=== PATIENT | male | born 1970 | race Caucasian/White ===

== ENCOUNTER 2017-07-18 18:36 | Inpatient (IN) | payer BC ==
[~2017-07-18] VITALS: Ht 177.8 cm; Wt 114.9 kg
[2017-07-18 18:37] VITALS: BP 177/67
[2017-07-18 18:58] LABS: BASO % 0.5 % (0.0-1.0); EOS # 0.5 10*3/uL (0.0-0.4); EOS % 5.4 % (1.0-4.0); HEMATOCRIT 41.1 % (42.0-52.0); HEMOGLOBIN 13.2 g/dl (14.0-18.0); LYMPH % 11.7 % (27.0-41.0); MEAN CELL VOLUME 89.2 fl (80.0-94.0); MEAN CORPUSCULAR HGB 28.6 pg (27.0-31.0); MEAN CORPUSCULAR HGB CONC 32.1 g/dl (33.0-37.0); MEAN PLATELET VOLUME 10.6 fl (9.6-12.3); MONO # 0.6 10*3/uL (0.1-1.0); MONO % 6.6 % (3.0-9.0); NEUT # 6.4 10*3/uL (2.3-7.9); NEUT % 75.6 % (47.0-73.0); PLATELET COUNT AUTOMATED 192 10*3/uL (130-400); RED BLOOD COUNT 4.61 10*6/uL (4.50-5.90); RED CELL DISTRI WIDTH 14.4 % (0-14.5); WHITE BLOOD COUNT 8.5 10*3/uL (4.8-10.8)
[2017-07-18 19:13] LABS: ACT PARTIAL THROMBO TIME 23.1 SECONDS (20.8-31.5)
[2017-07-18 19:19] LABS: ALBUMIN 3.5 gm/dl (3.1-4.5); ALKALINE PHOSPHATASE 105 U/L (45-117); BUN 15 mg/dl (7-24); CHLORIDE 102 mmol/L (98-107); CREATININE 0.69 mg/dL (0.70-1.30); POTASSIUM 4.3 mmol/L (3.5-5.1); SGOT/AST 29 IU/L (3-35); SGPT/ALT 44 U/L (12-78); SODIUM 138 mmol/L (136-145); TOTAL PROTEIN 6.8 gm/dL (6.4-8.2)
[2017-07-18 19:21] LABS: TROPONIN I < 0.015 ng/ml (<0.045)
[2017-07-18 19:30] VITALS: BP 124/77
[2017-07-18] MEDS ORDERED: HYDROCHLOROTH12.5 M3 PO (19:45)
[2017-07-18] MEDS ORDERED: VITAMIN D22000 UNIT PO (19:45)
[2017-07-18] MEDS ORDERED: PRINIVIL20 M1 PO (19:46)
[2017-07-18] MEDS ORDERED: GLUCOPHAGE1000 MG PO (19:47)
[2017-07-18] MEDS ORDERED: BENADRYL ALLERG25 M5 PO (19:48)
[2017-07-18] MEDS ORDERED: CLARITIN10 MG PO (19:49)
[2017-07-18] MEDS ORDERED: PLAVIX75 M1 PO (19:49)
[2017-07-18] MEDS ORDERED: LIPITOR80 MG PO ×2 (19:50→19:51)
[2017-07-18] MEDS ORDERED: ASPIRIN CHEWABL81 MG PO (19:51)
[2017-07-18] MEDS ORDERED: NOVOLOG FL100 UNIT/1 SQ (19:53)
[2017-07-18] MEDS ORDERED: AMARYL2 MG PO (19:54)
[2017-07-18] MEDS ORDERED: LEVEMIR FL100 UNIT/1 SQ (19:55)
[2017-07-18 20:00] VITALS: BP 139/73
[2017-07-18 20:20] VITALS: BP 157/71
[2017-07-18 20:30] VITALS: BP 157/71
[2017-07-19] VITALS: BP 108/58
[2017-07-19 04:00] VITALS: BP 136/68
[2017-07-19 06:23] LABS: BASO # 0.1 10*3/uL (0.0-0.1); BASO % 0.7 % (0.0-1.0); EOS # 0.5 10*3/uL (0.0-0.4); EOS % 7.9 % (1.0-4.0); HEMOGLOBIN 12.6 g/dl (14.0-18.0); MEAN CELL VOLUME 88.8 fl (80.0-94.0); MEAN CORPUSCULAR HGB 29.4 pg (27.0-31.0); MEAN CORPUSCULAR HGB CONC 33.2 g/dl (33.0-37.0); MONO # 0.6 10*3/uL (0.1-1.0); MONO % 8.8 % (3.0-9.0); NEUT # 4.6 10*3/uL (2.3-7.9); NEUT % 67.5 % (47.0-73.0); PLATELET COUNT AUTOMATED 170 10*3/uL (130-400); RED BLOOD COUNT 4.28 10*6/uL (4.50-5.90); RED CELL DISTRI WIDTH 14.5 % (0-14.5); WHITE BLOOD COUNT 6.7 10*3/uL (4.8-10.8)
[2017-07-19 06:51] LABS: BUN 12 mg/dl (7-24); CHLORIDE 102 mmol/L (98-107); SODIUM 140 mmol/L (136-145)
[2017-07-19 07:03] LABS: CHOLESTEROL 123 mg/dL (<200); CREATININE 0.55 mg/dL (0.70-1.30); HDL CHOLESTEROL 27 mg/dl (40-60); LDL CHOLESTEROL 80 mg/dL (9-159); PHOSPHOROUS 3.9 mg/dL (2.5-4.9); TRIGLYCERIDES 80 mg/dl (<150); VLDL CHOLESTEROL 16 mg/dL (6-40)
[2017-07-19 07:08] LABS: VITAMIN D, 25-HYDROXY 36.6 ng/mL (30-100)
[2017-07-19 08:00] VITALS: BP 138/64
[2017-07-19 12:00] VITALS: BP 136/66
[2017-07-19] MEDS ORDERED: LEXAPRO10 MG PO (16:47)
[2017-07-19] MEDS ORDERED: B12,B-12,B 12500 MC1 PO (16:47)
[2017-07-19] MEDS ORDERED: LEVEMIR FL100 UNIT/1 SQ (16:47)
== END 2017-07-19 17:28 | disposition home or self-care (01) | DRG 313 ==
LOC: ED 18:36 → EDHOLD 19:33 → 4E 19:33
PROVIDERS: Emergency Medicine; Internal Medicine
PROC: 3E073KZ Introduction of Other Diagnostic Substance into Coronary Artery, Percutaneous Approach (ICD-10-PCS; principal; 2017-07-19)
PROC: 4A02XM4 Measurement of Cardiac Total Activity, External Approach (ICD-10-PCS; principal; 2017-07-19)
DX: R07.89 Other chest pain (principal); E11.65 Type 2 diabetes mellitus with hyperglycemia; I10 Essential (primary) hypertension; E66.01 Morbid (severe) obesity due to excess calories; D64.9 Anemia, unspecified; E78.5 Hyperlipidemia, unspecified; F41.9 Anxiety disorder, unspecified; Z88.0 Allergy status to penicillin; Z82.49 Family history of ischemic heart disease and other diseases of the circulatory system; Z80.8 Family history of malignant neoplasm of other organs or systems; Z82.3 Family history of stroke; Z86.73 Personal history of transient ischemic attack (TIA), and cerebral infarction without residual deficits; Z90.89 Acquired absence of other organs; Z79.899 Other long term (current) drug therapy; Z79.82 Long term (current) use of aspirin; Z84.89 Family history of other specified conditions; Z79.4 Long term (current) use of insulin; Z87.891 Personal history of nicotine dependence; Z68.36 Body mass index [BMI] 36.0-36.9, adult

== ENCOUNTER → 2017-07-24 | Outpatient (CLI) | payer BC ==
[~2017-07-24] MED LIST: AMARYL2 MG PO; ASPIRIN CHEWABL81 MG PO; B12,B-12,B 12500 MC1 PO; BENADRYL ALLERG25 M5 PO; CLARITIN10 MG PO; GLUCOPHAGE1000 MG PO; HYDROCHLOROTH12.5 M3 PO; LEVEMIR FL100 UNIT/1 SQ; LEXAPRO10 MG PO; LIPITOR80 MG PO; NOVOLOG FL100 UNIT/1 SQ; PLAVIX75 M1 PO; PRINIVIL20 M1 PO; VITAMIN D22000 UNIT PO
[2017-07-24 16:31] LABS: BASO # 0.1 10*3/uL (0.0-0.1); BASO % 0.6 % (0.0-1.0); EOS # 0.4 10*3/uL (0.0-0.4); EOS % 4.6 % (1.0-4.0); HEMATOCRIT 45.1 % (42.0-52.0); HEMOGLOBIN 14.8 g/dl (14.0-18.0); LYMPH # 0.9 10*3/uL (1.3-4.4); LYMPH % 9.7 % (27.0-41.0); MEAN CELL VOLUME 87.4 fl (80.0-94.0); MEAN CORPUSCULAR HGB 28.7 pg (27.0-31.0); MEAN CORPUSCULAR HGB CONC 32.8 g/dl (33.0-37.0); MEAN PLATELET VOLUME 9.9 fl (9.6-12.3); MONO # 0.7 10*3/uL (0.1-1.0); MONO % 7.6 % (3.0-9.0); NEUT # 7.2 10*3/uL (2.3-7.9); NEUT % 77.1 % (47.0-73.0); PLATELET COUNT AUTOMATED 210 10*3/uL (130-400); RED BLOOD COUNT 5.16 10*6/uL (4.50-5.90); RED CELL DISTRI WIDTH 14.3 % (0-14.5); WHITE BLOOD COUNT 9.3 10*3/uL (4.8-10.8)
[2017-07-24 16:45] LABS: ALBUMIN 3.7 gm/dl (3.1-4.5); ALKALINE PHOSPHATASE 94 U/L (45-117); BUN 24 mg/dl (7-24); CHLORIDE 101 mmol/L (98-107); CREATININE 0.87 mg/dL (0.70-1.30); SGOT/AST 13 IU/L (3-35); SGPT/ALT 27 U/L (12-78); SODIUM 138 mmol/L (136-145)
== END | disposition home or self-care (01) ==
LOC: RESCLI 00:34
PROVIDERS: Family Medicine
DX: I10 Essential (primary) hypertension (principal); I63.9 Cerebral infarction, unspecified; E11.9 Type 2 diabetes mellitus without complications; E55.9 Vitamin D deficiency, unspecified; J30.2 Other seasonal allergic rhinitis; E78.5 Hyperlipidemia, unspecified; F33.9 Major depressive disorder, recurrent, unspecified; Z79.4 Long term (current) use of insulin; Z88.0 Allergy status to penicillin

== ENCOUNTER → 2017-08-09 | Outpatient (CLI) | payer BC | END | disposition home or self-care (01) | LOC: US 01:19 | DX: I65.23 Occlusion and stenosis of bilateral carotid arteries (principal); E11.9 Type 2 diabetes mellitus without complications; I10 Essential (primary) hypertension ==

== ENCOUNTER → 2020-06-22 | Outpatient (CLI) | payer BC ==
[2020-06-22 11:54] LABS: BILIRUBIN Negative (Negative); BLOOD Negative (Negative); CLARITY Clear (Clear); COLOR Yellow (Yellow); GLUCOSE Negative (Negative); KETONE Negative (Negative); LEUKO ESTERASE Negative (Negative); NITRITE Negative (Negative)
[2020-06-22 12:08] LABS: WBC 0-2 wbc/hpf (0-5)
[2020-06-22 12:23] LABS: ALBUMIN 3.5 gm/dl (3.1-4.5); BILIRUBIN, DIRECT 0.1 mg/dL (0.0-0.2); BUN 21 mg/dl (7-24); CHLORIDE 105 mmol/L (98-107); HDL CHOLESTEROL 39 mg/dl (40-60); SGOT/AST 18 IU/L (3-35); SGPT/ALT 23 U/L (12-78); SODIUM 138 mmol/L (136-145)
[2020-06-22 12:26] LABS: ALKALINE PHOSPHATASE 71 U/L (45-117); CHOLESTEROL 104 mg/dL (<200); CREATININE 0.83 mg/dL (0.70-1.30); LDL CHOLESTEROL 52 mg/dL (9-159); TRIGLYCERIDES 66 mg/dl (<150); VLDL CHOLESTEROL 13 mg/dL (6-40)
[2020-06-22 12:35] LABS: VITAMIN D, 25-HYDROXY 55.3 ng/mL (30-100)
== END | disposition home or self-care (01) ==
LOC: LAB 11:02
PROVIDERS: ATTEND Internal Medicine
DX: E11.65 Type 2 diabetes mellitus with hyperglycemia (principal); E11.40 Type 2 diabetes mellitus with diabetic neuropathy, unspecified; E78.5 Hyperlipidemia, unspecified; E55.9 Vitamin D deficiency, unspecified

== ENCOUNTER → 2022-10-27 | Outpatient (CLI) | payer BC ==
[2022-10-27 11:57] LABS: BILIRUBIN Negative (Negative); BLOOD Negative (Negative); CLARITY Clear (Clear); COLOR Yellow (Yellow); GLUCOSE Negative (Negative); KETONE Trace (Negative); LEUKO ESTERASE Negative (Negative); NITRITE Negative (Negative)
[2022-10-27 12:24] LABS: ALKALINE PHOSPHATASE 68 U/L (46-116); BUN 16 mg/dl (9-23); CHLORIDE 102 mmol/L (98-107); CHOLESTEROL 122 mg/dL (<200); LDL CHOLESTEROL 69 mg/dL (9-159); POTASSIUM 4.5 mmol/L (3.4-5.1); SGPT/ALT 18 U/L (10-49); TOTAL PROTEIN 6.5 gm/dL (6.0-8.0); TRIGLYCERIDES 96 mg/dl (<150)
[2022-10-27 12:29] LABS: VITAMIN D, 25-HYDROXY 53.2 ng/mL (30-100)
== END | disposition home or self-care (01) ==
LOC: LAB 10:47
PROVIDERS: ATTEND Internal Medicine
DX: E11.65 Type 2 diabetes mellitus with hyperglycemia (principal); E11.40 Type 2 diabetes mellitus with diabetic neuropathy, unspecified; E55.9 Vitamin D deficiency, unspecified; E78.5 Hyperlipidemia, unspecified; N40.0 Benign prostatic hyperplasia without lower urinary tract symptoms; D50.0 Iron deficiency anemia secondary to blood loss (chronic)

== ENCOUNTER → 2022-12-22 | Outpatient (CLI) | payer BC | END | disposition home or self-care (01) | LOC: LAB 15:04 | PROVIDERS: ATTEND Surgery | DX: R10.9 Unspecified abdominal pain (principal) ==

== ENCOUNTER → 2022-12-23 | Outpatient (CLI) | payer BC | END | disposition home or self-care (01) | LOC: CT 01:21 | PROVIDERS: ATTEND Surgery | DX: K80.20 Calculus of gallbladder without cholecystitis without obstruction (principal); I70.0 Atherosclerosis of aorta; K42.9 Umbilical hernia without obstruction or gangrene ==

== ENCOUNTER → 2023-03-02 | Outpatient (CLI) | payer BC | END | disposition home or self-care (01) | LOC: US 01:19 | PROVIDERS: ATTEND Surgery | DX: K80.20 Calculus of gallbladder without cholecystitis without obstruction (principal) ==

== ENCOUNTER → 2023-03-18 | Outpatient (CLI) | payer BC ==
[~2023-03-18] MED LIST changes: +HUMALOG 751 UNIT/0.0 SC; +TRULICITY4.5 MG/0.5 SQ
[2023-03-18 09:36] LABS: BILIRUBIN Negative (Negative); BLOOD Negative (Negative); CLARITY Clear (Clear); COLOR Yellow (Yellow); GLUCOSE Negative (Negative); KETONE Trace (Negative); LEUKO ESTERASE Negative (Negative); NITRITE Negative (Negative); SPECIFIC GRAVITY 1.025 (1.001-1.030)
[2023-03-18 11:18] LABS: BACTERIA 3+
== END | disposition home or self-care (01) ==
LOC: LAB 09:08
PROVIDERS: ATTEND Internal Medicine
DX: I44.4 Left anterior fascicular block (principal); D50.0 Iron deficiency anemia secondary to blood loss (chronic); E11.9 Type 2 diabetes mellitus without complications; E78.5 Hyperlipidemia, unspecified; E11.40 Type 2 diabetes mellitus with diabetic neuropathy, unspecified

== ENCOUNTER → 2023-03-20 | Day surgery (SDC) | payer BC ==
[2023-03-17 13:06] VITALS: BP 166/91
[2023-03-18 09:35] LABS: BASO % 0.7 % (0.0-1.0); EOS # 0.2 10*3/uL (0.0-0.4); EOS % 2.6 % (1.0-4.0); HEMATOCRIT 42.7 % (42.0-52.0); LYMPH # 0.9 10*3/uL (1.3-4.4); LYMPH % 14.7 % (27.0-41.0); MEAN CELL VOLUME 87.5 fl (80.0-94.0); MEAN CORPUSCULAR HGB 28.7 pg (27.0-31.0); MEAN CORPUSCULAR HGB CONC 32.8 g/dl (33.0-37.0); MEAN PLATELET VOLUME 10.2 fl (9.6-12.3); MONO # 0.4 10*3/uL (0.1-1.0); MONO % 7.2 % (3.0-9.0); NEUT # 4.6 10*3/uL (2.3-7.9); NEUT % 74.6 % (47.0-73.0); PLATELET COUNT AUTOMATED 184 10*3/uL (130-400); RED BLOOD COUNT 4.88 10*6/uL (4.50-5.90); RED CELL DISTRI WIDTH 13.8 % (0-14.5); WHITE BLOOD COUNT 6.1 10*3/uL (4.8-10.8)
[2023-03-18 09:45] LABS: ACT PARTIAL THROMBO TIME 30.2 SECONDS (20.0-32.1)
[2023-03-18 10:02] LABS: ALKALINE PHOSPHATASE 70 U/L (46-116); BUN 30 mg/dl (9-23); CHLORIDE 103 mmol/L (98-107); POTASSIUM 4.3 mmol/L (3.4-5.1); SGPT/ALT 19 U/L (5-49); TOTAL PROTEIN 6.9 gm/dL (6.0-8.0)
[2023-03-20] VITALS (7 sets, daily range): BP systolic 101–125; BP diastolic 50–79
[~2023-03-20] VITALS: Ht 175.2 cm; Wt 104.3 kg
[~2023-03-20] MED LIST changes: +HYDROCODONE-AC1 EAC1 PO
== END | disposition home or self-care (01) ==
LOC: SDC 03-17 13:15
PROVIDERS: ATTEND Surgery
DX: K43.6 Other and unspecified ventral hernia with obstruction, without gangrene (principal); K80.20 Calculus of gallbladder without cholecystitis without obstruction; I10 Essential (primary) hypertension; E11.9 Type 2 diabetes mellitus without complications; E66.9 Obesity, unspecified; E78.5 Hyperlipidemia, unspecified; Z87.891 Personal history of nicotine dependence; Z79.899 Other long term (current) drug therapy; Z90.49 Acquired absence of other specified parts of digestive tract; Z90.89 Acquired absence of other organs; Z98.890 Other specified postprocedural states; Z88.0 Allergy status to penicillin; Z91.040 Latex allergy status; Z91.09 Other allergy status, other than to drugs and biological substances; Z68.33 Body mass index [BMI] 33.0-33.9, adult

== ENCOUNTER 2023-04-28 20:29 | Emergency (ER) | payer BC ==
[~2023-04-28] VITALS: Ht 172.7 cm; Wt 97.5 kg
[2023-04-28 20:47] VITALS: BP 132/76
[2023-04-28] MEDS ORDERED: CYMBALTA20 M1 PO (20:53)
[2023-04-28] MEDS ORDERED: BUSPAR5 MG PO (20:53)
[2023-04-28 21:04] LABS: BASO % 0.6 % (0.0-1.0); EOS # 0.2 10*3/uL (0.0-0.4); EOS % 2.9 % (1.0-4.0); HEMATOCRIT 39.4 % (42.0-52.0); LYMPH # 0.9 10*3/uL (1.3-4.4); LYMPH % 14.6 % (27.0-41.0); MEAN CELL VOLUME 88.1 fl (80.0-94.0); MEAN CORPUSCULAR HGB 28.4 pg (27.0-31.0); MEAN CORPUSCULAR HGB CONC 32.2 g/dl (33.0-37.0); MEAN PLATELET VOLUME 10.2 fl (9.6-12.3); MONO # 0.6 10*3/uL (0.1-1.0); MONO % 8.7 % (3.0-9.0); NEUT # 4.6 10*3/uL (2.3-7.9); NEUT % 73.2 % (47.0-73.0); PLATELET COUNT AUTOMATED 200 10*3/uL (130-400); RED BLOOD COUNT 4.47 10*6/uL (4.50-5.90); RED CELL DISTRI WIDTH 14.1 % (0-14.5); WHITE BLOOD COUNT 6.3 10*3/uL (4.8-10.8)
[2023-04-28 21:23] LABS: ACT PARTIAL THROMBO TIME 27.4 SECONDS (20.0-32.1)
[2023-04-28 21:32] LABS: BILIRUBIN Negative (Negative); BLOOD Negative (Negative); CLARITY Cloudy (Clear); COLOR Yellow (Yellow); GLUCOSE Negative (Negative); KETONE Trace (Negative); LEUKO ESTERASE Negative (Negative); NITRITE Negative (Negative); SPECIFIC GRAVITY 1.025 (1.001-1.030)
[2023-04-28 21:32] LABS: ALKALINE PHOSPHATASE 86 U/L (46-116); BUN 22 mg/dl (9-23); CHLORIDE 104 mmol/L (98-107); LIPASE 61 U/L (12-53); POTASSIUM 4.1 mmol/L (3.4-5.1); SGPT/ALT 19 U/L (5-49); TOTAL PROTEIN 6.6 gm/dL (6.0-8.0)
[2023-04-28 21:47] LABS: BACTERIA 1+; MUCOUS 2+
[2023-04-28] MEDS ORDERED: ACID REDUCER10 MG PO (23:32)
== END 2023-04-28 23:36 | disposition home or self-care (01) ==
LOC: ED 20:29
PROVIDERS: Internal Medicine
DX: K21.9 Gastro-esophageal reflux disease without esophagitis (principal); R11.2 Nausea with vomiting, unspecified; Z91.040 Latex allergy status; Z88.0 Allergy status to penicillin; Z79.899 Other long term (current) drug therapy; Z79.4 Long term (current) use of insulin; Z96.22 Myringotomy tube(s) status; Z90.89 Acquired absence of other organs; Z87.891 Personal history of nicotine dependence

== ENCOUNTER → 2023-08-01 | Outpatient (CLI) | payer BC ==
[~2023-08-01] MED LIST changes: +ACID REDUCER10 MG PO; +BUSPAR5 MG PO; +CYMBALTA20 M1 PO
[2023-08-01 09:19] LABS: BILIRUBIN Negative (Negative); BLOOD Negative (Negative); CLARITY Clear (Clear); COLOR Yellow (Yellow); GLUCOSE Negative (Negative); KETONE Negative (Negative); LEUKO ESTERASE Negative (Negative); NITRITE Negative (Negative)
[2023-08-01 09:44] LABS: ALKALINE PHOSPHATASE 76 U/L (46-116); BUN 21 mg/dl (9-23); CHLORIDE 102 mmol/L (98-107); CHOLESTEROL 135 mg/dL (<200); LDL CHOLESTEROL 86 mg/dL (9-159); POTASSIUM 4.4 mmol/L (3.4-5.1); SGPT/ALT 12 U/L (5-49); TOTAL PROTEIN 6.6 gm/dL (6.0-8.0); TRIGLYCERIDES 65 mg/dl (<150)
[2023-08-01 09:47] LABS: VITAMIN D, 25-HYDROXY 62.2 ng/mL (30-100)
[2023-08-01 10:01] LABS: WBC 0-2 wbc/hpf (0-5)
== END | disposition home or self-care (01) ==
LOC: LAB 08:29
PROVIDERS: ATTEND Internal Medicine
DX: E11.40 Type 2 diabetes mellitus with diabetic neuropathy, unspecified (principal); E34.9 Endocrine disorder, unspecified; E11.9 Type 2 diabetes mellitus without complications; E55.9 Vitamin D deficiency, unspecified; N40.0 Benign prostatic hyperplasia without lower urinary tract symptoms; E78.5 Hyperlipidemia, unspecified; D50.0 Iron deficiency anemia secondary to blood loss (chronic)

== ENCOUNTER → 2024-01-22 | Outpatient (CLI) | payer BC ==
[2024-01-22 08:44] LABS: BILIRUBIN Negative (Negative); BLOOD Negative (Negative); CLARITY Clear (Clear); COLOR Yellow (Yellow); GLUCOSE Negative (Negative); KETONE Trace (Negative); LEUKO ESTERASE Negative (Negative); NITRITE Negative (Negative); SPECIFIC GRAVITY 1.015 (1.001-1.030)
[2024-01-22 09:12] LABS: ALKALINE PHOSPHATASE 69 U/L (46-116); BUN 24 mg/dl (9-23); CHLORIDE 103 mmol/L (98-107); CHOLESTEROL 85 mg/dL (<200); LDL CHOLESTEROL 33 mg/dL (9-159); SGPT/ALT 22 U/L (5-49); TRIGLYCERIDES 73 mg/dl (<150)
[2024-01-22 09:56] LABS: VITAMIN D, 25-HYDROXY 60.9 ng/mL (30-100)
[2024-01-22 11:01] LABS: RBC 0-2 rbc/hpf (0-2)
== END | disposition home or self-care (01) ==
LOC: LAB 08:22
PROVIDERS: ATTEND Internal Medicine
DX: E11.9 Type 2 diabetes mellitus without complications (principal); E78.5 Hyperlipidemia, unspecified; E55.9 Vitamin D deficiency, unspecified; E34.9 Endocrine disorder, unspecified; D50.0 Iron deficiency anemia secondary to blood loss (chronic); N40.0 Benign prostatic hyperplasia without lower urinary tract symptoms

== ENCOUNTER 2024-08-13 16:29 | Emergency (ER) | payer BC ==
[~2024-08-13] VITALS: Ht 175.2 cm; Wt 99.8 kg
[2024-08-13 16:56] VITALS: BP 148/72
[2024-08-13] MEDS ORDERED: HYDROCHLOROTHIA25 M1 PO (16:57)
[2024-08-13] MEDS ORDERED: DULOXETINE HCL30 MG PO (16:57)
[2024-08-13] MEDS ORDERED: CLOPIDOGREL75 MG PO (16:57)
[2024-08-13] MEDS ORDERED: LISINOPRIL10 M1 PO (16:58)
[2024-08-13] MEDS ORDERED: METFORMIN HYDR500 MG PO (16:58)
[2024-08-13] MEDS ORDERED: ROSUVASTATIN CA40 MG PO (16:59)
[2024-08-13] MEDS ORDERED: OMEPRAZOLE40 MG PO (16:59)
[2024-08-13] MEDS ORDERED: PREDNISONE20 M1 PO (17:13)
[2024-08-13] MEDS ORDERED: methylPREDNISolone sod succ 125 MG VIAL IM ONE (17:15)
[2024-08-13] MEDS ORDERED: Acetaminophen/Oxycodone 5 MG/325 MG TABLET PO ONE (17:15)
[2024-08-13] MEDS ORDERED: Water, Sterile 10 ML VIAL ONE (17:41)
== END 2024-08-13 17:19 | disposition home or self-care (01) ==
LOC: ED 16:29
DX: S39.012A Strain of muscle, fascia and tendon of lower back, initial encounter (principal); E11.9 Type 2 diabetes mellitus without complications; K21.9 Gastro-esophageal reflux disease without esophagitis; F41.9 Anxiety disorder, unspecified; D64.9 Anemia, unspecified; E11.65 Type 2 diabetes mellitus with hyperglycemia; I10 Essential (primary) hypertension; Z91.040 Latex allergy status; Z88.0 Allergy status to penicillin; Z79.4 Long term (current) use of insulin; Z90.89 Acquired absence of other organs; Z98.890 Other specified postprocedural states; Z87.891 Personal history of nicotine dependence; X50.0XXA Overexertion from strenuous movement or load, initial encounter; Y93.89 Activity, other specified; Y92.89 Other specified places as the place of occurrence of the external cause; Y99.8 Other external cause status

== ENCOUNTER → 2024-08-17 | Outpatient (CLI) | payer BC ==
[~2024-08-17] MED LIST changes: +CLOPIDOGREL75 MG PO; +DULOXETINE HCL30 MG PO; +HYDROCHLOROTHIA25 M1 PO; +LISINOPRIL10 M1 PO; +METFORMIN HYDR500 MG PO; +OMEPRAZOLE40 MG PO; +PREDNISONE20 M1 PO; +ROSUVASTATIN CA40 MG PO
[2024-08-17 10:34] LABS: BILIRUBIN Negative (Negative); BLOOD Negative (Negative); CLARITY Clear (Clear); COLOR Yellow (Yellow); GLUCOSE 2+ (Negative); HEMATOCRIT 42.8 % (42.0-52.0); KETONE Negative (Negative); LEUKO ESTERASE Negative (Negative); MEAN CELL VOLUME 89.5 fl (80.0-94.0); MEAN CORPUSCULAR HGB 28.5 pg (27.0-31.0); MEAN CORPUSCULAR HGB CONC 31.8 g/dl (33.0-37.0); MEAN PLATELET VOLUME 9.7 fl (9.6-12.3); NITRITE Negative (Negative); RED BLOOD COUNT 4.78 10*6/uL (4.50-5.90); RED CELL DISTRI WIDTH 13.8 % (0-14.5); WHITE BLOOD COUNT 7.7 10*3/uL (4.8-10.8)
[2024-08-17 10:50] LABS: BACTERIA TRACE; MUCOUS TRACE; WBC 0-2 wbc/hpf (0-5)
[2024-08-17 11:00] LABS: ALKALINE PHOSPHATASE 69 U/L (46-116); BUN 24 mg/dl (9-23); CHLORIDE 100 mmol/L (98-107); CHOLESTEROL 93 mg/dL (<200); LDL CHOLESTEROL 44 mg/dL (9-159); POTASSIUM 4.6 mmol/L (3.4-5.1); SGPT/ALT 19 U/L (5-49); TOTAL PROTEIN 6.6 gm/dL (6.0-8.0); TRIGLYCERIDES 89 mg/dl (<150)
== END | disposition home or self-care (01) ==
LOC: LAB 10:14
PROVIDERS: ATTEND Internal Medicine
DX: E11.9 Type 2 diabetes mellitus without complications (principal); E78.5 Hyperlipidemia, unspecified; E11.40 Type 2 diabetes mellitus with diabetic neuropathy, unspecified; N40.0 Benign prostatic hyperplasia without lower urinary tract symptoms; E34.9 Endocrine disorder, unspecified; D50.0 Iron deficiency anemia secondary to blood loss (chronic)

== ENCOUNTER 2024-12-29 13:33 | Emergency (ER) | payer BC ==
[~2024-12-29] VITALS: Ht 177.8 cm; Wt 100.7 kg
[2024-12-29 14:00] VITALS: BP 123/62
[2024-12-29 14:13] LABS: BILIRUBIN 1+ (Negative); BLOOD 1+ (Negative); CLARITY Turbid (Clear); COLOR Red (Yellow); KETONE Negative (Negative); LEUKO ESTERASE 2+ (Negative); NITRITE Positive (Negative); PH 5.0 (4.5-8.0); SPECIFIC GRAVITY 1.025 (1.001-1.030); UROBILINOGEN 1.0 E.U./dl (0.0-1.0)
[2024-12-29 14:28] LABS: RBC TNTC rbc/hpf (0-2)
[2024-12-29] MEDS ORDERED: CIPRO500 MG PO (14:36)
[2024-12-29] MEDS ORDERED: Ciprofloxacin Hydrochloride 500 MG TAB PO ONE ×2 (14:40)
== END 2024-12-29 14:40 | disposition home or self-care (01) ==
LOC: ED 13:33
PROVIDERS: Nurse Practitioner Family
DX: N39.0 Urinary tract infection, site not specified (principal); Z91.040 Latex allergy status; Z88.0 Allergy status to penicillin; Z79.899 Other long term (current) drug therapy; Z79.84 Long term (current) use of oral hypoglycemic drugs; Z79.4 Long term (current) use of insulin; Z90.89 Acquired absence of other organs; Z96.22 Myringotomy tube(s) status; Z87.891 Personal history of nicotine dependence

== ENCOUNTER → 2024-12-31 | Outpatient (CLI) | payer BC ==
[~2024-12-31] MED LIST changes: +CIPRO500 MG PO
[2024-12-31 08:20] LABS: MEAN CELL VOLUME 91.6 fl (80.0-94.0); MEAN CORPUSCULAR HGB 28.7 pg (27.0-31.0); MEAN PLATELET VOLUME 9.8 fl (9.6-12.3); NUCLEATED RED BLOOD CELL 0.0 % (0.0-0.0); NUCLEATED RED BLOOD CELL 0.0 10*3/uL (0.0-0.0); PLATELET COUNT AUTOMATED 196.0 10*3/uL (130-400); RED CELL DISTRI WIDTH 14.0 % (0-14.5)
[2024-12-31 08:33] LABS: BILIRUBIN Negative (Negative); BLOOD Trace-Lysed (Negative); CLARITY Clear (Clear); COLOR Yellow (Yellow); KETONE Trace (Negative); LEUKO ESTERASE 1+ (Negative); NITRITE Negative (Negative); PH 5.0 (4.5-8.0); SPECIFIC GRAVITY 1.020 (1.001-1.030); UROBILINOGEN 1.0 E.U./dl (0.0-1.0)
[2024-12-31 08:45] LABS: BACTERIA 2+
[2024-12-31 09:30] LABS: BUN 35 mg/dl (9-23); LDL CHOLESTEROL 46 mg/dL (9-159); SGPT/ALT 13 U/L (5-49)
[2024-12-31 09:48] LABS: VITAMIN D, 25-HYDROXY 70.3 ng/mL (30-100)
== END | disposition home or self-care (01) ==
LOC: LAB 07:53
PROVIDERS: ATTEND Internal Medicine
DX: E11.40 Type 2 diabetes mellitus with diabetic neuropathy, unspecified (principal); E78.5 Hyperlipidemia, unspecified; E55.9 Vitamin D deficiency, unspecified; N40.0 Benign prostatic hyperplasia without lower urinary tract symptoms; E34.9 Endocrine disorder, unspecified

== ENCOUNTER → 2025-04-23 | Outpatient (CLI) | payer BC ==
[2025-04-23 09:57] LABS: MEAN CELL VOLUME 88.0 fl (80.0-94.0); MEAN CORPUSCULAR HGB 27.9 pg (27.0-31.0); MEAN PLATELET VOLUME 10.2 fl (9.6-12.3); NUCLEATED RED BLOOD CELL 0.0 % (0.0-0.0); NUCLEATED RED BLOOD CELL 0.0 10*3/uL (0.0-0.0); PLATELET COUNT AUTOMATED 168.0 10*3/uL (130-400); RED CELL DISTRI WIDTH 14.0 % (0-14.5)
[2025-04-23 10:08] LABS: BILIRUBIN Negative (Negative); BLOOD Negative (Negative); CLARITY Clear (Clear); COLOR Yellow (Yellow); KETONE Negative (Negative); LEUKO ESTERASE Negative (Negative); NITRITE Negative (Negative); PH 5.0 (4.5-8.0); SPECIFIC GRAVITY 1.020 (1.001-1.030); UROBILINOGEN 0.2 E.U./dl (0.0-1.0)
[2025-04-23 10:33] LABS: BACTERIA 2+; RBC 0-2 rbc/hpf (0-2); WBC 0-2 wbc/hpf (0-5)
[2025-04-23 10:49] LABS: BUN 21 mg/dl (9-23); LDL CHOLESTEROL 63 mg/dL (9-159); SGPT/ALT 13 U/L (5-49)
[2025-04-23 11:05] LABS: VITAMIN D, 25-HYDROXY 60.9 ng/mL (30-100)
== END | disposition home or self-care (01) ==
LOC: LAB 09:38
PROVIDERS: ATTEND Internal Medicine
DX: E11.40 Type 2 diabetes mellitus with diabetic neuropathy, unspecified (principal); E78.5 Hyperlipidemia, unspecified; E55.9 Vitamin D deficiency, unspecified; E34.9 Endocrine disorder, unspecified; D50.0 Iron deficiency anemia secondary to blood loss (chronic); N40.0 Benign prostatic hyperplasia without lower urinary tract symptoms